=== PATIENT | male | born 1980 | race Caucasian/White ===

== ENCOUNTER 2018-05-12 22:27 | Emergency (ER) | payer BC ==
[~2018-05-12] VITALS: Ht 175.3 cm; Wt 68.0 kg
[~2018-05-12 22:27] MED LIST: NOHOMEMEDICATIONS; ULTRAM 50MG TAB50 MG PO
[2018-05-12 22:56] LABS: URINE BILIRUBIN NEGATIVE (Negative); URINE BLOOD NEGATIVE (Negative); URINE CLARITY CLEAR; URINE COLOR YELLOW; URINE GLUCOSE-RANDOM NEGATIVE (Negative); URINE KETONES NEGATIVE (Negative); URINE LEUKOCYTES-REFLEX NEGATIVE (Negative); URINE PROTEIN NEGATIVE (Negative); URINE SPECIFIC GRAVITY <= 1.005 (1.005-1.030); URINE UROBILINOGEN 0.2 E.U./dl (0.2-1.0)
[2018-05-12 22:58] LABS: URINE NITRITE-REFLEX POSITIVE (Negative)
[2018-05-12 23:05] LABS: ABSOLUTE BASOPHILS 0.1 thou/uL (0.0-0.2); ABSOLUTE EOSINOPHILS 0.3 thou/uL (0.0-0.7); ABSOLUTE LYMPHOCYTES 2.8 thou/uL (0.8-5.3); ABSOLUTE MONOCYTES 0.7 thou/uL (0.0-1.2); ABSOLUTE NEUTROPHILS 5.2 thou/uL (1.6-8.1); BASOPHILS 1.5 %; EOSINOPHILS 3.1 %; HEMATOCRIT 43.8 % (42.0-52.0); HEMOGLOBIN 15.3 gm/dL (14.0-18.0); LYMPHOCYTES 30.3 %; MCH 31.7 pg (26.0-34.0); MCHC 34.8 g/dL (28.0-37.0); MCV 91.1 fL (80.0-100.0); MONOCYTES 7.8 %; MPV 9.4 fl. (7.2-11.1); NUCLEATED RBCS 0 /100WBC; PLATELET COUNT* 209 thou/uL (150-400); POLYS 57.3 %; RBC 4.81 mil/uL (4.50-6.00); RDW-CV 12.9 % (10.5-14.5); WBC 9.1 thou/uL (4.0-11.0)
[2018-05-12 23:09] LABS: BACTERIA-REFLEX 1-9 Few /HPF (None Seen); CASTS None Seen /LPF (None Seen); CRYSTALS None Seen /LPF (None Seen); MUCUS None Seen strn/LPF (None Seen); SQUAMOUS NONE SEEN /LPF (0-3)
[2018-05-12 23:10] LABS: URINE RBC None Seen /HPF (0-2); URINE WBC-REFLEX 0-5 Rare /HPF (0-5)
[2018-05-12 23:20] LABS: ANION GAP 6 mmol/L (7-16); BUN 9 mg/dL (7-18); CALCIUM 9.3 mg/dL (8.5-10.1); CHLORIDE 100 mmol/L (98-107); CO2 32 mmol/L (21-32); CREATININE 0.9 mg/dL (0.6-1.3); GLUCOSE 95 mg/dL (70-99); SODIUM 138 mmol/L (136-145)
[2018-05-12 23:24] LABS: ALKALINE PHOSPHATASE 154 U/L (46-116); LIPASE 96 U/L (73-393); SGOT 18 U/L (15-37); SGPT 40 U/L (30-65); TOTAL PROTEIN 7.1 g/dL (6.4-8.2); TROPONIN-I LEVEL <0.06 ng/mL (<0.06)
[2018-05-13 00:20] VITALS: BP 140/96
[2018-05-13] MEDS ORDERED: BACTRIM DS TAB1 EACH PO (00:21)
[2018-05-13] MEDS ORDERED: NORCO 5-325 TA1 EACH PO (00:21)
--- NOTE | 2018-05-13 13:43 | EKG ---
[place] [address] ELECTROCARDIOGRAM REPORT Name: JORGE MALIK Room: [facility]#: [id number] Admission: 05/12/18 Attend Phys: Discharge: 05/13/18 Date of : 78 Report #: [id number] THIS REPORT FOR: //name// [facility] ED Test Date: 2018-05-12 Test Time: 23:31:18 Pat Name: JORGE MALIK Department: Room: Gender: Bander Operator: : 1980 Requested By: Brenda Rice Order Number: [id number] MD: Kalpesh Torrez Measurements Intervals [place] Rate: 69 P: -37 WA: 117 QRS: 31 QRSD: 84 T: 33 QT: 360 QTc: 386 Interpretive Statements Sinus rhythm Borderline short WA interval Abnormal R-wave progression, early transition No previous ECG available for comparison Electronically Signed On 05-13-2018 13:43:08 CHEMICAL TESTER by Kalpesh Torrez [email or web address] <ELECTRONICALLY SIGNED> By: Kalpesh Torrez MD, [facility] 05/13/18 [id number] Kalpesh Torrez MD, FACC /EPI
== END 2018-05-13 00:30 | disposition home or self-care (01) ==
LOC: M.ERS 22:27
PROVIDERS: Physician Assistant
DX: N39.0 Urinary tract infection, site not specified (principal)